=== PATIENT | female | born 1995 | race Caucasian/White ===

== ENCOUNTER 2017-06-08 13:16 | Emergency (ER) | payer OTHER ==
[~2017-06-08] VITALS: Ht 170.2 cm; Wt 74.2 kg
[2017-06-08 13:19] VITALS: TEMP 36.7; Ht 170.2 cm; Wt 74.2 kg
[2017-06-08] MEDS ORDERED: SODIUM CHLORIDE 0.9% 1000ML 1,000 ML IV STA (13:57)
[2017-06-08 14:01] LABS: BASO % 0.1 %; BASO ABS # 0.01 K/uL (0-0.2); COMPLETE YES; EOS % 0.9 %; HEMATOCRIT 37.6 % (37-47); IG% 0.1 %; LYMPH % 16.2 %; LYMPH ABS # 1.45 K/uL (1.2-3.4); MEAN CELL VOLUME 88.9 fL (80-100); MEAN CORPUSCULAR HGB CONC 33.8 g/dl (32-36); MEAN PLATELET VOLUME 13.2 fL (7.4-10.4); MONO % 10.1 %; NEUT % 72.6 %; PLATELET COUNT 168 K/uL (130-400); RED BLOOD COUNT 4.23 M/uL (4.2-5.4); WHITE BLOOD COUNT 8.97 K/uL (4.8-10.8)
[2017-06-08] MEDS ORDERED: OPTIRAY 320 IV PRN (14:15)
[2017-06-08 14:16] LABS: BUN/CREATININE RATIO 10.8 (10-20); CALCIUM 9.3 mg/dl (8.5-10.1); CREATININE 0.97 mg/dl (0.60-1.20); POTASSIUM 3.9 mmol/L (3.5-5.1)
[2017-06-08 14:19] LABS: ALB/GLOB RATIO 0.8 (0.9-2)
[2017-06-08] MEDS ORDERED: BCPILLS PO (15:10)
[2017-06-08 15:30] LABS: PREG INTERNAL NEGATIVE QC NEG CLEAR BACKGROUND; PREG INTERNAL POSITIVE QC POS CONTROL LINE
[2017-06-08 15:34] LABS: URINE APPEARANCE CLEAR (CLEAR); URINE BILIRUBIN NEG (NEG); URINE COLOR YELLOW; URINE EPITHELIAL CELL AUTO >30 /lpf (0-5); URINE NITRITE NEG (NEG); URINE PH 6.5 (4.5-7.5); URINE SPECIFIC GRAVITY 1.015 (1.000-1.030); UROBILINOGEN NEG (NEG); ZZUR CULT IF INDIC CLEAN CATCH NO
[2017-06-08 15:35] LABS: MANUAL MICROSCOPIC REQUIRED? NO; REVIEW REQ? NO
--- NOTE | 2017-06-08 16:20 | DIAGNOSTIC IMAGING REPORT ---
EXAMINATION: PELVIC ULTRASOUND CLINICAL HISTORY: RLQ pain COMPARISON STUDY: None FINDINGS: The uterus measured 6.9 x 2.9 x 4.3 cm.. The endometrial stripe measured 5 mm. There is a small amount of fluid within the fundal endometrium.. The right ovary measured 25 x 31 x 16 mm.. The left ovary measured 24 x 32 x 17 mm. There is a 23 mm left paraovarian cyst versus exophytic ovarian cyst.. There is no ultrasonographic evidence of ovarian torsion. It should be noted that ovarian torsion can be present with normal Doppler ultrasonographic findings. There was no evidence of pathologic free pelvic fluid. IMPRESSION: 1. Minimal fluid within the endometrial cavity 2. Ultrasonographically normal right ovary 3. 23 mm left para ovarian cyst versus exophytic ovarian cyst. 4. No ultrasonographic evidence of ovarian torsion. Electronically signed by: Avi Brown M.D. 06/08/2017 4:19 PM Dictated Date/Time: 06/08/2017 4:15 PM
[2017-06-08] MEDS ORDERED: ONDANSETRON INJ 2 MG/ML 2 ML VIAL ONE (17:29)
--- NOTE | 2017-06-08 17:50 | DIAGNOSTIC IMAGING REPORT ---
CT OF THE ABDOMEN AND PELVIS WITH CONTRAST CLINICAL HISTORY: Right lower quadrant abdominal pain and nausea. COMPARISON STUDY: Pelvic ultrasound performed June 08, 2017. TECHNIQUE: Following IV administration of 100 mL of Optiray-320, axial images of the abdomen and pelvis were obtained from the lung bases to the proximal femurs. Images were reviewed in the axial, sagittal, and coronal planes. IV contrast was administered without complication. A dose lowering technique was utilized adhering to the principles of ALARA. Oral contrast was administered. CT DOSE: 514.50 mGycm FINDINGS: The liver, spleen, adrenal glands, kidneys and pancreas are normal. There is no evidence for a bowel obstruction. The appendix is normal. There is moderate wall thickening of the terminal ileum. There is also mild wall thickening of the cecum and proximal ascending colon. A few prominent ileocolic lymph nodes measure up to 8 mm in short axis diameter. No pathologically enlarged lymph nodes are present. There is no pneumatosis, free air or portal venous gas. There is no abscess. A dominant follicle or cyst is noted adjacent to the left ovary. There is no suspicious osseous lesion. IMPRESSION: 1. Normal appendix. 2. Moderate wall thickening of the terminal ileum and mild wall thickening of the proximal ascending colon. The findings suggest a nonspecific enterocolitis, likely infectious in etiology. An inflammatory etiology could appear similar. No abscess. No free air. 3. A few prominent ileocolic lymph nodes which are likely reactive. Electronically signed by: Fabián Doshi M.D. 06/08/2017 5:05 PM Dictated Date/Time: 06/08/2017 4:58 PM
[2017-06-08] MEDS ORDERED: ONDA4TAB10 SL (18:06)
--- NOTE | 2017-06-08 18:07 | EMERGENCY ROOM VISIT NOTE ---
History First contact with patient: 13:30 Chief Complaint: ABDOMINAL PAIN Stated Complaint: ABDOMINAL PAIN Nursing Triage Summary: Pt reports severe mid abdominal pain that started last night. Denies nausea and vomiting. History of Present Illness The patient is a 22 year old female who presents to the Emergency Room accompanied by a family friend with complaints of abdominal pain. The patient states that last night, she developed severe upper abdominal pain which woke her up throughout the night. She states that the pain progressively worsened over the night, and became intermittent this morning. The patient states the pain is across her upper abdomen and into the right side. She states the pain is sharp and rates the discomfort a 10/10. She did take some ibuprofen this morning with slight improvement. She denies any other aggravating or alleviating factors. She has had a normal appetite. She denies nausea/vomiting , urinary symptoms or changes in bowel movements. The patient denies any history of similar abdominal pain. She denies any abdominal surgeries. She currently has her menstrual period. She denies any abnormal vaginal discharge. Review of Systems A complete 10 point review of systems was reviewed with the patient with pertinent positives and negatives as per history of present illness. All else were negative. Social History Smoking Status: Never Smoker Housing Status: lives with family Occupation Status: student Current/Historical Medications Scheduled Control Pills ( Control Pills), 1 TAB PO DAILY Ondasetron Odt (Zofran Odt), 4 MG SL Q6H Physical Exam Vital Signs Date Time Temp Pulse Resp B/P (MAP) Pulse Ox O2 Delivery O2 Flow Rate FiO2 06/08/17 18:15 86 18 132/87 99 06/08/17 16:15 98 18 138/97 99 Room Air 06/08/17 14:37 80 16 142/92 100 Room Air 06/08/17 13:19 36.7 98 18 125/79 99 Room Air Physical Exam VITALS: Vitals are noted on the nurse's note and reviewed by myself. Vital signs stable. GENERAL: This is a 22-year-old female, in no acute distress, nondiaphoretic, well-developed well-nourished. SKIN: No rashes noted. HEENT: Normocephalic. PERRLA. EOMI. Mucous membranes moist. Neck is supple without nuchal rigidity. HEART: Regular rate and rhythm without murmurs gallops or rubs. LUNGS: Clear to auscultation bilaterally without wheezes, rales or rhonchi. ABDOMEN: Positive bowel sounds x 4. Soft, nondistended. There is tenderness to palpation in the epigastric region, right upper quadrant and right lower quadrant. No guarding or rebound tenderness. Negative Rovsing sign. Negative Fregoso sign. NEURO: Patient was alert and oriented to person place and time. Medical Decision & Procedures ER Provider Diagnostic Interpretation: EXAMINATION: PELVIC ULTRASOUND FINDINGS: The uterus measured 6.9 x 2.9 x 4.3 cm.. The endometrial stripe measured 5 mm. There is a small amount of fluid within the fundal endometrium.. The right ovary measured 25 x 31 x 16 mm.. The left ovary measured 24 x 32 x 17 mm. There is a 23 mm left paraovarian cyst versus exophytic ovarian cyst.. There is no ultrasonographic evidence of ovarian torsion. It should be noted that ovarian torsion can be present with normal Doppler ultrasonographic findings. There was no evidence of pathologic free pelvic fluid. IMPRESSION: 1. Minimal fluid within the endometrial cavity 2. Ultrasonographically normal right ovary 3. 23 mm left para ovarian cyst versus exophytic ovarian cyst. 4. No ultrasonographic evidence of ovarian torsion. CT OF THE ABDOMEN AND PELVIS WITH CONTRAST FINDINGS: The liver, spleen, adrenal glands, kidneys and pancreas are normal. There is no evidence for a bowel obstruction. The appendix is normal. There is moderate wall thickening of the terminal ileum. There is also mild wall thickening of the cecum and proximal ascending colon. A few prominent ileocolic lymph nodes measure up to 8 mm in short axis diameter. No pathologically enlarged lymph nodes are present. There is no pneumatosis, free air or portal venous gas. There is no abscess. A dominant follicle or cyst is noted adjacent to the left ovary. There is no suspicious osseous lesion. IMPRESSION: 1. Normal appendix. 2. Moderate wall thickening of the terminal ileum and mild wall thickening of the proximal ascending colon. The findings suggest a nonspecific enterocolitis, likely infectious in etiology. An inflammatory etiology could appear similar. No abscess. No free air. 3. A few prominent ileocolic lymph nodes which are likely reactive. Laboratory Results 06/08/17 13:45 Red Blood Count 4.23, Mean Corpuscular Volume 88.9, Mean Corpuscular Hemoglobin 30.0, Mean Corpuscular Hemoglobin Concent 33.8, Mean Platelet Volume 13.2, Neutrophils (%) (Auto) 72.6, Lymphocytes (%) (Auto) 16.2, Monocytes (%) (Auto) 10.1, Eosinophils (%) (Auto) 0.9, Basophils (%) (Auto) 0.1, Neutrophils # (Auto ) 6.51, Lymphocytes # (Auto) 1.45, Monocytes # (Auto) 0.91, Eosinophils # (Auto ) 0.08, Basophils # (Auto) 0.01 06/08/17 13:45 Test 06/08/17 13:45 06/08/17 15:11 White Blood Count 8.97 K/uL (4.8-10.8) Red Blood Count 4.23 M/uL (4.2-5.4) Hemoglobin 12.7 g/dL (12.0-16.0) Hematocrit 37.6 % (37-47) Mean Corpuscular Volume 88.9 fL (80-100) Mean Corpuscular Hemoglobin 30.0 pg (25-34) Mean Corpuscular Hemoglobin Concent 33.8 g/dl (32-36) Platelet Count 168 K/uL (130-400) Mean Platelet Volume 13.2 fL (7.4-10.4) Neutrophils (%) (Auto) 72.6 % Lymphocytes (%) (Auto) 16.2 % Monocytes (%) (Auto) 10.1 % Eosinophils (%) (Auto) 0.9 % Basophils (%) (Auto) 0.1 % Neutrophils # (Auto) 6.51 K/uL (1.4-6.5) Lymphocytes # (Auto) 1.45 K/uL (1.2-3.4) Monocytes # (Auto) 0.91 K/uL (0.11-0.59) Eosinophils # (Auto) 0.08 K/uL (0-0.5) Basophils # (Auto) 0.01 K/uL (0-0.2) RDW Standard Deviation 45.0 fL (36.4-46.3) RDW Coefficient of Variation 13.8 % (11.5-14.5) Immature Granulocyte % (Auto) 0.1 % Immature Granulocyte # (Auto) 0.01 K/uL (0.00-0.02) Anion Gap 7.0 mmol/L (3-11) Est Creatinine Clear Calc Drug Dose 97.3 ml/min Estimated GFR () 97.4 Estimated GFR (Non- 84.1 BUN/Creatinine Ratio 10.8 (10-20) Calcium Level 9.3 mg/dl (8.5-10.1) Total Bilirubin 0.7 mg/dl (0.2-1) Aspartate Amino Transf (AST/SGOT) 15 U/L (15-37) Alanine Aminotransferase (ALT/SGPT) 19 U/L (12-78) Alkaline Phosphatase 70 U/L (45-117) Total Protein 8.3 gm/dl (6.4-8.2) Albumin 3.8 gm/dl (3.4-5.0) Globulin 4.5 gm/dl (2.5-4.0) Albumin/Globulin Ratio 0.8 (0.9-2) Lipase 84 U/L (73-393) Urine Color YELLOW Urine Appearance CLEAR (CLEAR) Urine pH 6.5 (4.5-7.5) Urine Specific [place] 1.015 (1.000-1.030) Urine Protein TRACE (NEG) Urine Glucose (UA) NEG (NEG) Urine Ketones NEG (NEG) Urine Occult Blood TRACE (NEG) Urine Nitrite NEG (NEG) Urine Bilirubin NEG (NEG) Urine Urobilinogen NEG (NEG) Urine Leukocyte Esterase NEG (NEG) Urine WBC (Auto) 1-5 /hpf (0-5) Urine RBC (Auto) 0-4 /hpf (0-4) Urine Hyaline Casts (Auto) 1-5 /lpf (0-5) Urine Epithelial Cells (Auto) >30 /lpf (0-5) Urine Bacteria (Auto) NEG (NEG) Urine Test NEG (NEG) Medications Administered Medications (Trade) Dose Ordered Sig/Roxann Route Start Time Stop Time Status Last Admin Dose Admin Sodium Chloride 1,000 ml @ 999 mls/hr Q1H1M STAT IV 06/08/17 13:57 06/08/17 14:57 DC 06/08/17 14:10 999 MLS/HR Ondansetron HCl (Zofran Inj) 4 mg STK-MED ONCE .ROUTE 06/08/17 17:29 06/08/17 17:30 DC 06/08/17 17:40 4 MG ED Course The patient was evaluated as above. Labs were drawn and IV access was obtained. Patient was medicated with 1 L normal saline solution and 4 mg Zofran IV. Pelvic ultrasound was performed and read by radiology as above. Patient was reassessed and states that her pain has changed slightly and is now constant. CT of the abdomen and pelvis was performed. Patient was reevaluated and findings were discussed with her, her family friend and her grandfather. Discharge instructions were reviewed with the patient. The patient verbalized understanding of my assessment and treatment plan and was discharged home in good condition. Medical Decision Differential diagnosis includes appendicitis, colitis, gastroenteritis, ovarian cyst, ovarian torsion, endometriosis, cholecystitis, diverticulitis, urinary tract infection, PID among others. The patient is a 22-year-old female who presents today complaining of abdominal pain. She does have some tenderness in the right lower quadrant. I initially discussed possibly performing laboratory studies and pelvic ultrasound, per the patient's family friend is significantly concerned about possible appendicitis. For this reason, a CT scan was ordered. Pelvic ultrasound was also performed and showed a left ovarian cyst. No evidence of torsion. Labs revealed no leukocytosis, anemia or concerning electrolyte abnormalities. Urinalysis was not suggestive of infection. Urine was negative. CT of the abdomen and pelvis with IV and oral contrast was performed and showed no evidence of appendicitis. However, it did show enterocolitis. Conservative measures were discussed with the patient and family. She was encouraged to follow-up with her primary care provider or return here for any worsening or new/concerning symptoms. The patient's case was reviewed with Dr. Minor, ED attending physician, who agreed with my assessment and treatment plan. Based on the patient's presentation and work up, I feel the patient is stable for outpatient treatment. The patient was educated to return to the emergency department for any worsening of their current condition or new/concerning symptoms. She will follow up with her PCP. Medication Reconcilliation Current Medication List: was personally reviewed by me Blood Pressure Screening Patient's blood pressure: Normal blood pressure Impression Primary Impression: Enterocolitis Departure Information Dispostion Home / Self-Care Condition GOOD Prescriptions Ondasetron Odt (ZOFRAN ODT) 4 Mg Tab 4 MG SL Q6H for Nausea, #10 TAB Prov: Breanna James ., MOLLY 06/08/17 Referrals No Doctor, Assigned (PCP) Patient Instructions My [facility] Additional Instructions You have been treated in the Emergency Department your Abdominal Pain. Laboratory results and imaging studies have ruled out any emergent causes for your abdominal pain which would warrant admission or surgery. You have been prescribed Zofran to be used for any nausea or vomiting. Take as prescribed. For pain control, you can use the following [id number] medicines (if >12 yo): - Regular strength (325mg/tab) Tylenol (acetaminophen) 2 tabs every 4-6 hours as needed. Do not exceed 12 tablets in a 24 hour period. Avoid taking more than 4 grams (4000 mg) of Tylenol per day. This includes any other sources of acetaminophen you may take on a regular basis. - Regular strength (200 mg/tab) Advil (ibuprofen) 1-2 tabs every 4-6 hours as needed. Do not exceed a dose of 3200 mg per day. Clear liquid diet (broth, water, Gatorade) for the next 24-48 hours, then advance as tolerated. Drink plenty of water and stay well hydrated. As with any trip to the Emergency Department, you should follow-up with your Primary Care Provider from today's visit. Return to the emergency department if your symptoms persist despite treatment plan outlined above or if the following symptoms occur: Significantly worsening abdominal pain, fevers, chills, worsening nausea/vomiting, blood in your stool or urine.
[2017-06-08 18:15] VITALS: BP 132/87; PULSE 86; O2SAT 99
== END 2017-06-08 18:20 | disposition home or self-care (01) ==
LOC: C.EDB 13:17
DX: K52.9 Noninfective gastroenteritis and colitis, unspecified (principal); N83.202 Unspecified ovarian cyst, left side; Z79.3 Long term (current) use of hormonal contraceptives